=== PATIENT | male | born 1995 | race African-American/Black ===

== ENCOUNTER 2019-01-28 13:02 | Emergency (ER) | payer MEDICAID ==
[~2019-01-28] VITALS: Ht 185.4 cm; Wt 84.0 kg
[2019-01-28] MEDS ORDERED: KETOROLAC 60MG/2ML VIAL IM ONE (18:00)
[2019-01-28 18:36] VITALS: BP 116/66
== END 2019-01-28 18:37 | disposition home or self-care (01) ==
LOC: ER 15:42
DX: K08.89 Other specified disorders of teeth and supporting structures (principal)
CPT/HCPCS: 96372; 99283; J1885

== ENCOUNTER 2019-11-09 17:20 | Emergency (ER) | payer MEDICAID ==
[~2019-11-09] VITALS: Ht 167.6 cm; Wt 82.0 kg
[2019-11-09 17:24] VITALS: BP 120/74
[2019-11-09] MEDS ORDERED: IBUPROFEN 800MG TABLET PO ONE (21:00)
[2019-11-09] MEDS ORDERED: LIDOCAINE HCL/PF 1% 10 MG/ML 5ML VIAL IJ ONE (22:00)
== END 2019-11-09 23:35 | disposition home or self-care (01) ==
LOC: ER 17:29
DX: J02.9 Acute pharyngitis, unspecified (principal); R09.81 Nasal congestion; R05 Cough; F17.200 Nicotine dependence, unspecified, uncomplicated; F12.10 Cannabis abuse, uncomplicated
CPT/HCPCS: 71045; 73030; 73130; 87070; 87430; 99284; A4217; J3490; Z7610

== ENCOUNTER 2020-10-25 14:42 | Emergency (ER) | payer MEDICAID ==
[~2020-10-25] VITALS: Ht 182.9 cm; Wt 85.0 kg
[2020-10-25] MEDS ORDERED: ALBUTEROL (0.083%) 2.5MG/3ML NEB HHN ONE (15:30)
[2020-10-25 18:08] VITALS: BP 128/76
== END 2020-10-25 18:10 | disposition home or self-care (01) ==
LOC: ER 14:42
DX: J45.901 Unspecified asthma with (acute) exacerbation (principal); R06.03 Acute respiratory distress; R03.0 Elevated blood-pressure reading, without diagnosis of hypertension; F12.90 Cannabis use, unspecified, uncomplicated
CPT/HCPCS: 71045; 94640; 99283; Z7610

== ENCOUNTER 2021-10-31 13:24 | Emergency (ER) | payer MEDICAID ==
[~2021-10-31] VITALS: Ht 185.4 cm; Wt 84.0 kg
[2021-10-31 13:52] VITALS: BP 114/70
[2021-10-31] MEDS ORDERED: PREDNISONE 20MG TABLET PO STA (13:54)
[2021-10-31] MEDS ORDERED: IPRATROPIUM BROMIDE (0.02%) 0.5MG/2.5ML NEB HHN STA (13:54)
[2021-10-31] MEDS ORDERED: ALBUTEROL (0.083%) 2.5MG/3ML NEB ONE (17:22)
[2021-10-31] MEDS ORDERED: ALBU6.7H9 INH (18:47)
[2021-10-31] MEDS ORDERED: BENZ-16 MT (18:47)
[2021-10-31] MEDS ORDERED: P20 MT (18:47)
[2021-10-31] MEDS ORDERED: IPRATROPIUM BROMIDE (0.02%) 0.5MG/2.5ML NEB HHN NR (19:00)
[2021-10-31] MEDS ORDERED: PREDNISONE 20MG TABLET PO NR (19:00)
[2021-10-31] MEDS ORDERED: ALBUTEROL (0.083%) 2.5MG/3ML NEB HHN SCH (19:00)
[2021-10-31] MEDS: ALBUTEROL (0.083%) 2.5MG/3ML NEB HHN SCH (19:00)
== END 2021-10-31 19:27 | disposition home or self-care (01) ==
LOC: ER 13:24
DX: J45.901 Unspecified asthma with (acute) exacerbation (principal)
CPT/HCPCS: 94644; 99285; Z7610